=== PATIENT | female | born 1955 | race Caucasian/White ===

== ENCOUNTER 2022-04-18 08:00 | Outpatient (CLI) | payer OTHER ==
[2022-04-18 16:16] LABS: BASOPHILS # (AUTO) 0.1 10^3/uL (0.0-0.1); EOSINOPHILS # (AUTO) 0.2 10^3/uL (0.0-0.7); EOSINOPHILS % (AUTO) 2.6 %; HCT - HEMATOCRIT 43.7 % (37.0-47.0); HGB - HEMOGLOBIN 14.8 g/dL (12.0-16.0); LYMPHOCYTES # (AUTO) 1.9 10^3/uL (1.5-3.5); LYMPHOCYTES % (AUTO) 31.5 %; MEAN CORPUSCULAR HEMOGLOBIN 32.4 pg (27.0-31.0); MEAN CORPUSCULAR HGB CONC 33.9 g/dL (32.0-36.0); MEAN CORPUSCULAR VOLUME 95.6 fL (81.0-99.0); MEAN PLATELET VOLUME 11.5 fL (7.9-10.8); MONOCYTES # (AUTO) 0.6 10^3/uL (0.0-1.0); MONOCYTES % (AUTO) 9.5 %; NEUTROPHILS # (AUTO) 3.4 10^3/uL (1.5-6.6); NEUTROPHILS % (AUTO) 55.1 %; PLT - PLATELET COUNT 272 10^3/uL (130-450); RED BLOOD COUNT 4.57 10^6/uL (4.20-5.40); RED CELL DISTRIBUTION WIDTH 12.2 % (12.0-15.0); WHITE BLOOD COUNT 6.1 x10^3/uL (4.8-10.8)
[2022-04-18 16:25] LABS: ALBUMIN 4.2 g/dL (3.2-5.5); ALBUMIN/GLOBULIN RATIO 1.4 (1.0-2.2); BILIRUBIN,TOTAL 0.6 mg/dL (0.2-1.0); CALCIUM 9.8 mg/dL (8.5-10.3); CREATININE 0.9 mg/dL (0.4-1.0); POTASSIUM 4.2 mmol/L (3.5-5.0); TOTAL PROTEIN 7.1 g/dL (6.7-8.2)
[2022-04-18 16:39] LABS: THYROID STIMULATING HORMONE 2.5 uIU/mL (0.34-5.60)
== END 2022-04-18 23:59 | disposition home or self-care (01) ==
LOC: LAB 08:00
PROVIDERS: ATTEND Internal Medicine
DX: C50.919 Malignant neoplasm of unspecified site of unspecified female breast (principal); L29.0 Pruritus ani; M25.519 Pain in unspecified shoulder; L29.9 Pruritus, unspecified
CPT/HCPCS: 36415; 80053; 84443; 85025

== ENCOUNTER 2023-02-05 17:06 | Outpatient (CLI) | payer MEDICARE, OTHER ==
--- NOTE | 2023-02-06 15:54 | Ultrasound Report ---
PROCEDURE: Pelvic w/Transvaginal INDICATIONS: POST MENOPAUSAL BLEEDING TECHNIQUE: Real-time scanning was performed of the pelvic organs, with image documentation. Additional endovagi nal scanning was necessary due to incomplete visualization of the adnexal and endometrial structures by transabdominal scanning. COMPARISON: None. FINDINGS: Uterus: Uterus is anteverted and normal in size at 7.2 x 2.8 x 4.6 cm. The myometrium is homogeneou s. The endometrium measures 5.3 mm in combined thickness. Ovaries: The right ovary measures 1.4 x 1.0 x 1.6 cm, with a calculated ovarian volume of 1.2 cc. T he left ovary measures 1.0 x 0.9 x 1.6 cm, with a calculated ovarian volume of 0.7 cc. The ovaries h ave a normal sonographic appearance. Less than 12 follicles can be seen in each ovary. No adnexal m asses are seen. No cystic lesions measuring greater than 3 cm. Other: No pathologic free abdominal or pelvic fluid. IMPRESSION: Thickened endometrium with post menopausal bleeding. Recommend further evaluation with endometrial s ampling as malignancy cannot be excluded. Reviewed by: Zeinab Gonzales MD on 02/06/2023 3:52 PM PDT Approved by: Zeinab Gonzales MD on 02/06/2023 3:52 PM PDT Station ID: [id number]
== END 2023-02-05 17:07 | disposition home or self-care (01) ==
LOC: DI 17:06
PROVIDERS: ATTEND Internal Medicine
DX: R93.89 Abnormal findings on diagnostic imaging of other specified body structures (principal); N95.0 Postmenopausal bleeding

== ENCOUNTER 2023-10-11 08:57 | Outpatient (CLI) | payer MEDICARE, OTHER ==
--- NOTE | 2023-10-11 10:26 | Ultrasound Report ---
PROCEDURE: Abdomen Limited INDICATIONS: RUQ PAIN TECHNIQUE: Real-time focused scanning was performed of the abdomen, with image documentation. COMPARISONS: None. FINDINGS: Liver: Increased liver echogenicity, commonly mild hepatic steatosis. Gallbladder: Unremarkable. Biliary ducts: Intrahepatic bile ducts are non-dilated. Extrahepatic bile duct caliber measures 4 m m. Normal is 6-7 mm or less in diameter, or 10 mm or less post-cholecystectomy. Pancreas: Visualized portions of the pancreas are sonographically normal. Right kidney: Normal in size and echotexture. Right kidney measures 10.3 cm long. No hydronephrosis or nephrolithiasis. No solid masses. No complex renal cystic lesions which require follow-up. Miscellaneous: No free abdominal fluid. IMPRESSION: Hepatic steatosis. No gallbladder pathology. Reviewed by: Heriberto Morocho MD on 10/11/2023 10:25 AM [facility] Approved by: Heriberto Morocho MD on 10/11/2023 10:25 AM [facility] Station ID: [id number]
== END 2023-10-11 08:58 | disposition home or self-care (01) ==
LOC: DI 08:57
PROVIDERS: ATTEND Internal Medicine
DX: R10.11 Right upper quadrant pain (principal); K76.0 Fatty (change of) liver, not elsewhere classified

== ENCOUNTER 2024-07-08 09:34 | Emergency (ER) | payer MEDICARE, OTHER ==
[2024-07-08 10:24] LABS: BILIRUBIN,URINE NEGATIVE (NEGATIVE); GLUCOSE, URINE (UA) NEGATIVE (NEGATIVE); KETONES,URINE (UA) NEGATIVE (NEGATIVE); LEUKOCYTE ESTERASE, URINE TRACE (NEGATIVE); NITRITE,URINE NEGATIVE (NEGATIVE); OCCULT BLOOD,URINE NEGATIVE (NEGATIVE); PH,URINE 6.5 PH (5.0-7.5); PROTEIN,URINE NEGATIVE (NEGATIVE); UROBILINOGEN,URINE 0.2 (NORMAL) E.U./dL (NORMAL)
[2024-07-08 10:25] LABS: CLARITY,URINE HAZY (CLEAR)
[2024-07-08 10:29] LABS: BASOPHILS # (AUTO) 0.1 10^3/uL (0.0-0.1); EOSINOPHILS # (AUTO) 0.3 10^3/uL (0.0-0.7); EOSINOPHILS % (AUTO) 5.1 %; HCT - HEMATOCRIT 45.2 % (37.0-47.0); HGB - HEMOGLOBIN 14.7 g/dL (12.0-16.0); LYMPHOCYTES # (AUTO) 1.7 10^3/uL (1.5-3.5); LYMPHOCYTES % (AUTO) 25.3 %; MEAN CORPUSCULAR HEMOGLOBIN 30.9 pg (27.0-31.0); MEAN CORPUSCULAR HGB CONC 32.5 g/dL (32.0-36.0); MEAN CORPUSCULAR VOLUME 95.2 fL (81.0-99.0); MEAN PLATELET VOLUME 10.6 fL (7.9-10.8); MONOCYTES # (AUTO) 0.5 10^3/uL (0.0-1.0); MONOCYTES % (AUTO) 7.7 %; NEUTROPHILS # (AUTO) 4.1 10^3/uL (1.5-6.6); NEUTROPHILS % (AUTO) 60.5 %; PLT - PLATELET COUNT 263 10^3/uL (130-450); RED BLOOD COUNT 4.75 10^6/uL (4.20-5.40); RED CELL DISTRIBUTION WIDTH 12.4 % (12.0-15.0); WHITE BLOOD COUNT 6.7 x10^3/uL (4.8-10.8)
[2024-07-08 10:41] LABS: BACTERIA,URINE Rare /HPF (None Seen); RBC,URINE 0-5 /HPF (0-5); SQUAMOUS EPITHELIAL CELL,UR FEW Squamous (<= Few); WBC CLUMPS,URINE PRESENT
[2024-07-08 10:50] LABS: TROPONIN I HIGH SENSITIVITY 2.8 ng/L (2.3-14.8)
[2024-07-08] MEDS ORDERED: GADOTERATE MEGLUMINE 7.5 MMOL/15 ML VIAL ONE (11:43)
[2024-07-08 12:09] LABS: ALBUMIN 4.3 g/dL (3.2-5.5); ALBUMIN/GLOBULIN RATIO 1.8 (1.0-2.2); BILIRUBIN,TOTAL 0.4 mg/dL (0.2-1.0); CALCIUM 9.8 mg/dL (8.5-10.3); POTASSIUM 3.7 mmol/L (3.5-4.5); TOTAL PROTEIN 6.7 g/dL (6.4-8.9)
[2024-07-08] MEDS: GADOTERATE MEGLUMINE 7.5 MMOL/15 ML VIAL IVP ONE (12:29)
--- NOTE | 2024-07-08 12:46 | MRI Report ---
PROCEDURE: Brain W/WO INDICATIONS: Bilateral hand incoordination, L neglect and sens def, CONTRAST: clariscan 14.8 mL TECHNIQUE: Noncontrast axial T1 spin echo, axial T2 fast spin echo, sagittal and axial FLAIR, coronal T2 fast sp in echo, axial gradient echo, axial diffusion and ADC through the brain. After the administration of contrast, axial and coronal T1 spin echo with fat saturation through the brain. COMPARISON: None. FINDINGS: Image quality: Excellent. CSF spaces: Basal cisterns are patent. No extra-axial fluid collections. Ventricles are normal in size and shape. Brain: No midline shift. No intracranial bleeds or masses. No abnormal intracranial enhancement. There is cerebral volume loss for age. There is periventricular white matter chronic small vessel is chemic change. The brainstem appears normal. Moderate-sized area of restricted diffusion involving t he right parietal lobe associated increased T2 signal compatible with acute/subacute infarct. No production shift supervisor brian ischemic insults. Normal intravascular flow voids are present. Skull and face: Calvarial marrow is normal in signal. Orbits appear normal. Sinuses: Sinuses and mastoids appear clear. IMPRESSION: Acute/subacute right parietal infarct. No intracranial hemorrhage. Reviewed by: Olimpia Tesfaye MD, PhD on 07/08/2024 12:45 PM PDT Approved by: Olimpia Tesfaye MD, PhD on 07/08/2024 12:45 PM PDT Station ID: [id number]
--- NOTE | 2024-07-08 13:01 | CT Report ---
PROCEDURE: Head WO INDICATIONS: L hand neglect, fine motor incoordinat., confusion TECHNIQUE: Noncontrast 4.5 mm thick angled axial sections acquired from the foramen magnum to the vertex. For r adiation dose reduction, the following was used: automated exposure control, adjustment of mA and/or kV according to patient size. COMPARISON: MRI brain 07/07/2024 FINDINGS: Image quality: Excellent. CSF spaces: Basal cisterns are patent. No extra-axial fluid collections. Ventricles are normal in size and shape. Brain: No midline shift. No intracranial masses or hemorrhage. Cornejo-white matter interface is norm al. Focal low-attenuation foci are present in the right frontal lobe. This corresponds to acute/suba cute ischemia on MRI exam. Skull and face: Calvarium and visualized facial bones are intact, without suspicious lesions. Sinuses: Visualized sinuses and mastoids are clear. IMPRESSION: Hypoattenuation in the right frontal lobe corresponding to acute/subacute ischemia. No superimposed h emorrhage. Reviewed by: Zeinab Gonzales MD on 07/08/2024 1:00 PM PDT Approved by: Zeinab Gonzales MD on 07/08/2024 1:00 PM PDT Station ID: [id number]
--- NOTE | 2024-07-08 13:08 | ED Physician Documentation ---
History of Present Illness - Stated complaint Stated Complaint: AMS - Chief complaint Chief Complaint: Neuro - History obtained from History obtained from: Patient, Family - Additonal information Additional information: The patient comes to the emergency department with her for chief complaint of neurodeficits and confusion. The patient received COVID and influenza vaccines about 1 week ago today and noticed a few days later that she did not seem to feel or even recognize her left hand. She states that she would drop things because she just could not seem to coordinate using the hand pr operly. She states that both hands felt clumsy when trying to button her shirt or her pants. The patient denies any history of anything like this before. She according to has also seemed confused. While she can answer most questions appropriately, she has also had some holes in her memory and reasoning. The patient also recognizes this. She denies any symptoms involving her leg. Her left face feels a little bit numb or cold but otherwise, no weakness. No dysarthria. No visual changes. She does have a questionable demyelinating disease which she states was nonprogressive and that she was never given actual diagnosis for it. Some years ago, she saw a neurologist down in [facility] who did lots of workup including MRIs and saw some demyelinating areas. These were fairly minimal however and after 7 years had not changed, so he declared her not to have MS and her care was suspended unless any change would occur. Patient states that she has not seen a neurologist since. At that time, she does note that she had diplopia and that she had the same facial numbness and coldness that she has now. She does note that she had diplopia when the symptoms first started this time. PD PAST MEDICAL HISTORY - Past Medical History Past Medical History: Yes NITROGLYCERIN DISTRIBUTOR: Breast cancer - Past Surgical History /NITROGLYCERIN DISTRIBUTOR: Other - Present Medications Home Medications: Ambulatory Orders Medication Instructions Recorded Confirmed No Known Home Medications 07/08/24 07/08/24 - Allergies Allergies/Adverse Reactions: Allergies Allergy/AdvReac Type Severity Reaction Status Date / Time Fish Containing Products Allergy Anaphylaxis Verified 07/08/24 09:57 - Social History Does the pt smoke?: No Smoking Status: Never smoker Does the pt drink ETOH?: Yes Does the pt have substance abuse?: No PD ED PE NORMAL - Vitals Vital signs reviewed: Yes - General General: Alert and oriented X 3, No acute distress, Well developed/nourished - HEENT HEENT: Atraumatic, PERRL, EOMI, Moist mucous membranes - Neck Neck: Supple, no meningeal sign - Cardiac Cardiac: RRR, No murmur - Respiratory Respiratory: No respiratory distress, Clear bilaterally - Abdomen Abdomen: Soft, Non tender, Non distended - Derm Derm: Normal color, Warm and dry, No rash - Extremities Extremities: No deformity, No edema - Neuro Neuro: Other (The patient is alert and oriented. She answers many questions appropriately but at times seems confused, or gives an answer that does not entirely make sense. Mild ataxia [id number] test left hand. Unable to grasp blanket and pull it up with L hand only ) - Psych Psych: Normal mood, Normal affect - Free text exam Free text exam: Neurologic exam continued: NIH stroke scale score of 1. Results - Vitals Vitals: Oxygen O2 Source Room air - Labs Labs: Microbiology 07/08/24 10:14 Urine Culture - Final Urine,Random No growth Laboratory Tests 07/08/24 07/08/24 07/08/24 10:14 10:22 10:22 WBC 6.7 RBC 4.75 Hgb 14.7 Hct 45.2 MCV 95.2 MCH 30.9 MCHC 32.5 RDW 12.4 Plt Count 263 MPV 10.6 Neut # (Auto) 4.1 Lymph # (Auto) 1.7 [place] # (Auto) 0.5 Eos # (Auto) 0.3 Baso # (Auto) 0.1 Absolute Nucleated RBC 0.00 Nucleated RBC % 0.0 Sodium 138 Potassium 3.7 Chloride 105 Carbon Dioxide 27 Anion Gap 6.0 BUN 14 Creatinine 1.0 Estimated GFR (MDRD) 55 L Glucose 102 Calcium 9.8 Total Bilirubin 0.4 AST 16 ALT 14 Alkaline Phosphatase 82 Troponin I High Sens 2.8 Total Protein 6.7 Albumin 4.3 Globulin 2.4 Albumin/Globulin Ratio 1.8 Lipase 27 Urine Color YELLOW Urine Clarity HAZY Urine pH 6.5 Ur Specific [place] 1.010 Urine Protein NEGATIVE Urine Glucose (UA) NEGATIVE Urine Ketones NEGATIVE Urine Occult Blood NEGATIVE Urine Nitrite NEGATIVE Urine Bilirubin NEGATIVE Urine Urobilinogen 0.2 (NORMAL) Ur Leukocyte Esterase TRACE H Urine RBC 0-5 Urine WBC 11-25 H Urine WBC Clumps PRESENT Ur Squamous Epith Cells FEW Squamous Urine Bacteria Rare Ur Microscopic Review INDICATED Urine Culture Comments INDICATED - Rads (name of study) CT head NC Relevant Findings:: Final report received, See rad report (No ICH) MRI brain Relevant Findings:: Final report received, See rad report (R parietal infarct, subacute) PD Medical Decision Making - ED course Complexity details: reviewed results, re-evaluated patient, considered differential, d/w patient, d/w family ED course: The pt's sx were somewhat atypical of a stroke, though did seem to lateralize more to the L than the R while pt still felt that there was some dysfunction of the R hand. She also reported the h/o some sort of demyelinating issue, NOS, as well as some diplopia on day #1 of sx this time around. As such, I was also concerned about MS. The pt underwent extensive testing in the ED, including la bs, EKG, NC head CT, and brain MRI w and w/o contrast. She was not found to have signs of MS, but was noted to have a parietal infarct on the R. I discussed these findings with the pt and . I ordered carotid duplex and echo at 1300. Duplex US was done, and carotids found to be clear. At 1530, we called echo to ask when the pt would have her echo done, and were informed that the tech was in with another patient and it would be after that. After an hour, the pt still was not taken for echo, and upon calling the department back, were informed the tech had left for the day and the test would not be done. This was extremely unfortunate, as we will not have echo again for 5 days. The pt sees Dr. Tran, who has already retired, and so I could not call her to try to get an outpatient echo set up. The pt was unaware until today that Dr. Tran was retiring, as pt has been in [place] for extended period of time. As such, she will be reestablishing with a new PCP. The pt is not a candidate for inpatient management at this time, as she has had all other testing with regard to stroke done, and the echo is all that is left. Since we will not have echo again for an extended period of time, an obs admission for this test is not possible. Given the current transfer climate in [facility] and the inability to get even very ill patients transferred in a timely manner, the likelihood of finding an accepting facility is exceedingly low. The pt is in normal sinus rhythm, and has no murmur, and I feel the likelihood of echo demonstrating mural thrombus or valvular vegetation is very low. As such, the best plan at this point is to start the pt on ASA prophylactically and have her establish with a new PCP as soon as possible. I have d/w pt and her that they should discuss getting set up with echo with the new PCP. We have discussed home management, including using the L hand as much as possible, and especially doing the things that feel compromised, like buttoning a shirt, over and over again to try to recover some of that ability. We have discussed the usual indications for return. Departure - Departure Disposition: Home, Self Care Clinical Impression: Ischemic stroke Condition: Stable Instructions: Stroke Ischemic Follow-Up: Cm Vieira MD [Physician No Access] - Comments: Your labs and EKG look good. Your MRI showed a stroke involving your right parietal region, explaining the left sided symptoms. Because of this began 5 days ago, it is not clear exactly how much of your function you will recover but at this point, there is no further intervention that can be done for the stroke and only time will tell whether you will make a full recovery. We have performed a carotid Doppler ultrasound to assess any blockages you may have in your carotid arteries, and this looks very good. We did attempt to get an echocardiogram done through the hospital today but unfortunately were unable to do so, And we will not have echocardiogram capabilities again until Friday, July 13. We have called the office of your primary doctor, Dr. Tran, but unfortunately she has already retired. It is extremely important that you establish with a new primary doctor, both for regular care and to discuss getting the echocardiogram done. Most likely, this test will be normal as you have a normal heart rhythm with no cardiac murmurs to indicate any sort of structural issue that would predispose you to forming clots within your heart. However, this is part of the workup and should be done as soon as possible. In the meantime, you should picker and sorter load and unload some aspirin [id number] and start taking this daily. We have given you a dose here. Please call tomorrow morning to get set up with primary care through [facility]. As far as your activity level going forward, it is really up to you. You can do as much as you want, with the understanding that we cannot entirely predict whether or when another stroke could occur. Being on the aspirin will help prevent this. So will maintaining a generally healthy diet and getting regular exercise. It is advisable for you to do as much with your left hand and arm as possible, especially the movements that are hard for you, like buttoning buttons. The more you use your left arm and hand, the more your brain will learn to recognize it again and the greater the likelihood of those nerves recovering. Forms: PCP List Discharge Date/Time: 07/08/24 18:46
--- NOTE | 2024-07-08 15:28 | Ultrasound Report ---
PROCEDURE: Carotid Doppler Complete INDICATIONS: stroke TECHNIQUE: Color and pulse Doppler interrogation was performed of both carotid systems, with image documentation and velocity measurements. COMPARISON: MR brain with and without contrast 07/08/2024 FINDINGS: Right side: Brachial blood pressure: Not obtained Common carotid artery peak systolic velocity: 58.4 cm/sec. Internal carotid artery peak systolic velocity: 71.2 cm/sec. Internal carotid artery end diastolic velocity: 25.1 cm/sec. External carotid artery peak systolic velocity: 90.6 cm/sec. ICA/CCA peak systolic ratio: 1.2 . Cornejo scale imaging description: No significant atherosclerotic plaque. Percent internal carotid artery stenosis: No hemodynamically significant stenosis. Vertebral artery: Flow direction is antegrade. Left side: Brachial blood pressure: Not obtained Common carotid artery peak systolic velocity: 41 cm/sec. Internal carotid artery peak systolic velocity: 77 cm/sec. Internal carotid artery end diastolic velocity: 27.8 cm/sec. External carotid artery peak systolic velocity: 77.2 cm/sec. ICA/CCA peak systolic ratio: 1.9 . Cornejo scale imaging description: No significant atherosclerotic plaque. Percent internal carotid artery stenosis: No hemodynamically significant stenosis. Vertebral artery: Flow direction is antegrade. IMPRESSION: 1. In the right internal carotid artery, there is no hemodynamically significant stenosis based on pe ak systolic velocity criteria. 2. In the left internal carotid artery, there is no hemodynamically significant stenosis based on pea k systolic velocity criteria. 3. Antegrade blood flow within the right vertebral artery. 4. Antegrade blood flow within the left vertebral artery. The estimate of stenosis included in the report of the imaging study was calculated using the [facility]-end orsed standards of carotid artery stenosis. Reviewed by: Albino Colon MD on 07/08/2024 3:27 PM PDT Approved by: Albino Colon MD on 07/08/2024 3:27 PM PDT Station ID: [id number]
[2024-07-08] MEDS: ASPIRIN CHEW 81 MG TABLET PO STA (18:02)
[2024-07-08 18:52] VITALS: BP 140/82; O2SAT 96
== END 2024-07-08 18:46 | disposition home or self-care (01) ==
LOC: ED 09:34
DX: I63.89 Other cerebral infarction (principal); G81.94 Hemiplegia, unspecified affecting left nondominant side; Z79.82 Long term (current) use of aspirin
CPT/HCPCS: 36415; 70450; 70553; 80053; 81001; 83690; 84484; 85025; 87086; 93005; 93880; 99284; A9270; 81003